=== PATIENT | female | born 1985 | race Caucasian/White ===

== ENCOUNTER 2017-07-09 09:48 | Emergency (ER) | payer OTHER ==
[~2017-07-09] VITALS: Ht 167.6 cm; Wt 87.8 kg
[~2017-07-09 09:48] MED LIST: PRENATA2 OR
[2017-07-09 09:54] VITALS: TEMP 36.7; Ht 167.6 cm; Wt 87.8 kg
[2017-07-09] MEDS ORDERED: IBUP-103 PO (10:34)
[2017-07-09] MEDS ORDERED: BUPR1SUB23 SL (10:34)
[2017-07-09] MEDS ORDERED: CYCLOBENZAPRINE HCL 10 MG TAB PO STA (11:10)
[2017-07-09] MEDS ORDERED: HYDROCODONE/ACETAMOPHEN 5/325MG TAB PO STA (11:10)
--- NOTE | 2017-07-09 11:36 | EMERGENCY ROOM VISIT NOTE ---
History Report prepared by [place]: Nelli Brice Under the Supervision of: Dr. Carmelina Ba M.D. First contact with patient: 09:58 Chief Complaint: ARM PAIN Stated Complaint: PAIN, BURNING NUMBNESS IN NECK AND SHOULDER History of Present Illness The patient is a 32 year old female who presents to the Emergency Room with complaints of persistent right neck pain that began a week ago. The patient rates her pain a 9/10 in severity. The patient states that she last took ibuprofen around 0800 this morning. She reports that she also tried heating pads and cold rubs but her pain is not resolving. The patient states that she is experiencing numbness in her right hand. She notes that she is experiencing tightness around her shoulder and neck. The patient reports that she has not been sleeping well because of the pain. The patient denies having shortness of breath or chest pain. 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 Source of History: patient Onset: about a week ago Position: neck Symptom Intensity: 9/10 Quality: other (tightness) Timing: other (persistent) Associated Symptoms: + neck pain, + numbness (right hand), No chest pain, No SOB Review of Systems See HPI for pertinent positives & negatives. A total of 6 systems reviewed and were otherwise negative. Past Medical & Surgical Medical Problems: (1) No active medical problems Family History No pertinent family history stated. Social History Smoking Status: Current Every Day Smoker Alcohol Use: none Drug Use: none Marital Status: single Housing Status: lives with significant other Occupation Status: employed Current/Historical Medications Scheduled Buprenorphine Hcl-Naloxone Hcl (Suboxone 8-2 Mg), 1 DOSE SL UD Scheduled PRN Cyclobenzaprine Hcl (Flexeril), 10 MG PO TID PRN for Muscle Spasms Ibuprofen Tab (Advil), 400 MG PO UD PRN for Pain Allergies Coded Allergies: No Known Allergies (Verified , 07/09/17) Physical Exam Vital Signs Date Time Temp Pulse Resp B/P (MAP) Pulse Ox O2 Delivery O2 Flow Rate FiO2 07/09/17 12:48 62 20 130/81 99 07/09/17 11:33 64 18 124/80 98 Room Air 07/09/17 09:54 36.7 92 20 126/84 99 Room Air Physical Exam Vital signs reviewed. General: Well-appearing female, in no significant distress. Musculoskeletal: Tender to palpation over right trapezius muscle. Pain with extension of shoulder and with abduction. Neurologic: Patient awake alert and oriented x 3. Skin: Warm, dry, no rash Medical Decision & Procedures ER Provider Diagnostic Interpretation: X-ray results as stated below per interpretation by me and the radiologist: CERVICAL SPINE 5 VIEWS CLINICAL HISTORY: Right shoulder pain. Cervical radiculopathy. FINDINGS: AP, lateral, bilateral oblique, and odontoid views of the cervical spine are obtained. No prior studies are available for comparison at the time of dictation. The skeletal structures are well mineralized. There is no radiographic evidence of fracture or subluxation. The odontoid process and lateral masses appear intact on the open mouth view. The spinolaminar line is preserved. Vertebral body height and alignment are maintained. There is straightening of the cervical lordosis with mild bursal centered at C4-C5. Small anterior osteophytes are seen at C6-C7. The spinous processes appear intact. The intervertebral disc spaces are normal. Tiny posterior disc osteophyte complexes at C5-C6 and C6-C7 may contribute to minimal acquired compromise of the central canal. There is no evidence of neuroforaminal stenosis on the oblique views. The prevertebral soft tissues are within normal limits. Visualized apical lung parenchyma appears clear. IMPRESSION: No acute bony abnormality is seen involving the cervical spine. Electronically signed by: Chris Boyd M.D. 07/09/2017 11:54 AM Dictated Date/Time: 07/09/2017 11:53 AM RIGHT SHOULDER 3 VIEWS CLINICAL HISTORY: Right shoulder pain. FINDINGS: 3 views of the right shoulder are obtained. No prior studies are available for comparison at the time of dictation. The skeletal structures are well mineralized. No fracture or dislocation is seen. The joint spaces are well-maintained. The overlying soft tissues are normal in appearance. The imaged right lung parenchyma appears clear. IMPRESSION: Unremarkable radiographic assessment of the right shoulder. Electronically signed by: Chris Boyd M.D. 07/09/2017 11:55 AM Dictated Date/Time: 07/09/2017 11:54 AM Medications Administered Medications (Trade) Dose Ordered Sig/Dayo Route Start Time Stop Time Status Last Admin Dose Admin Prednisone (PredniSONE TAB) 60 mg NOW STAT PO 07/09/17 11:10 07/09/17 11:12 DC 07/09/17 11:48 60 MG Acetaminophen/ Hydrocodone Bitart (Lupton 5/325 Tab) 1 tab NOW STAT PO 07/09/17 11:10 07/09/17 11:12 DC 07/09/17 11:47 1 TAB Cyclobenzaprine HCl (Flexeril Tab) 10 mg NOW STAT PO 07/09/17 11:10 07/09/17 11:12 DC 07/09/17 11:47 10 MG ED Course 1103: Past medical records reviewed. The patient was evaluated in room C6. A complete history and physical examination was performed. 1110: Ordered Flexeril Tab 10 mg PO, Lupton 5/325 Tab 1 tab PO, Prednisone 60 mg PO. 1238: I reevaluated the patient and she is resting comfortably. I discussed the exam findings with her and I discussed the treatment plan. She verbalized complete understanding and agreement. She is ready to go home. Medical Decision Differential diagnosis: Etiologies such as fracture, dislocation, neurovascular compromise, compartment syndrome, soft tissue injury, as well as others were entertained. This patient was evaluated and appeared to be in no significant distress. The patient was medicated with oral prednisone, Flexeril 10 mg by mouth and one tablet of Lupton. X-ray of the cervical spine and right shoulder were obtained and are largely negative for acute fracture or dislocation. The patient's on reevaluation the patient was feeling much improved. She was sleeping. Patient will be discharged with a muscle relaxant as well as ibuprofen when necessary. Patient will follow-up with her PCP this week and return to the ER for worsening of symptoms or any medical concerns. Medication Reconcilliation Current Medication List: was personally reviewed by me Impression Primary Impression: Trapezius muscle spasm Scribe Attestation The scribe's documentation has been prepared under my direction and personally reviewed by me in its entirety. I confirm that the note above accurately reflects all work, treatment, procedures, and medical decision making performed by me. Departure Information Dispostion Home / Self-Care Prescriptions Cyclobenzaprine Hcl (FLEXERIL) 10 Mg Tab 10 MG PO TID Y for Muscle Spasms, #21 TAB Prov: Carmelina Ba M.D. 07/09/17 Referrals No Doctor, Assigned (PCP) Forms HOME CARE DOCUMENTATION FORM, IMPORTANT VISIT INFORMATION Patient Instructions My [facility] Additional Instructions Diagnosis: Right trapezius muscule strain Flexeril 10 mg three times daily for 7 days. Ibuprofen 600 mg every 6 hours as needed for pain with food. Warm compresses and gentle stretching. Return to the ED for worsening of symptoms or any medical concerns.
--- NOTE | 2017-07-09 11:56 | DIAGNOSTIC IMAGING REPORT ---
CERVICAL SPINE 5 VIEWS CLINICAL HISTORY: Right shoulder pain. Cervical radiculopathy. FINDINGS: AP, lateral, bilateral oblique, and odontoid views of the cervical spine are obtained. No prior studies are available for comparison at the time of dictation. The skeletal structures are well mineralized. There is no radiographic evidence of fracture or subluxation. The odontoid process and lateral masses appear intact on the open mouth view. The spinolaminar line is preserved. Vertebral body height and alignment are maintained. There is straightening of the cervical lordosis with mild bursal centered at C4-C5. Small anterior osteophytes are seen at C6-C7. The spinous processes appear intact. The intervertebral disc spaces are normal. Tiny posterior disc osteophyte complexes at C5-C6 and C6-C7 may contribute to minimal acquired compromise of the central canal. There is no evidence of neuroforaminal stenosis on the oblique views. The prevertebral soft tissues are within normal limits. Visualized apical lung parenchyma appears clear. IMPRESSION: No acute bony abnormality is seen involving the cervical spine. Electronically signed by: Chris Boyd M.D. 07/09/2017 11:54 AM Dictated Date/Time: 07/09/2017 11:53 AM
--- NOTE | 2017-07-09 11:56 | DIAGNOSTIC IMAGING REPORT ---
RIGHT SHOULDER 3 VIEWS CLINICAL HISTORY: Right shoulder pain. FINDINGS: 3 views of the right shoulder are obtained. No prior studies are available for comparison at the time of dictation. The skeletal structures are well mineralized. No fracture or dislocation is seen. The joint spaces are well-maintained. The overlying soft tissues are normal in appearance. The imaged right lung parenchyma appears clear. IMPRESSION: Unremarkable radiographic assessment of the right shoulder. Electronically signed by: Chris Boyd M.D. 07/09/2017 11:55 AM Dictated Date/Time: 07/09/2017 11:54 AM
[2017-07-09] MEDS ORDERED: CYCL10TA6 PO (12:33)
[2017-07-09 12:48] VITALS: BP 130/81; PULSE 62; O2SAT 99
== END 2017-07-09 12:50 | disposition home or self-care (01) ==
LOC: C.EDB 09:51 → C.EDC 12:50
DX: M62.838 Other muscle spasm (principal); F17.210 Nicotine dependence, cigarettes, uncomplicated; Z79.899 Other long term (current) drug therapy